=== PATIENT | male | born 1995 ===

== ENCOUNTER 2019-02-06 10:58 | Emergency (ER) | payer OTHER ==
[2019-02-06 11:14] VITALS: TEMP 98.3; BMI 31.4
[2019-02-06 13:02] LABS: BASO % 0.6 % (0.0-2.0); EOS # 0.1 K/uL (0.0-0.7); EOS % 1.1 % (0.0-4.0); HEMOGLOBIN 14.6 g/dL (12.0-18.0); LYMPH # 1.4 K/uL (1.0-4.3); LYMPH % 18.5 % (20.0-40.0); MEAN CORPUSCULAR HEMOGLOBIN 31.9 pg (27.0-31.0); MEAN CORPUSCULAR HGB CONC 33.9 g/dL (33.0-37.0); MEAN PLATELET VOLUME 8.7 fl (7.2-11.7); MONO # 0.5 K/uL (0.0-0.8); MONO % 6.3 % (0.0-10.0); NEUT # 5.7 K/uL (1.8-7.0); NEUT % 73.5 % (50.0-75.0); RBC 4.59 Mil/uL (4.40-5.90); RED CELL DISTRIBUTION WIDTH 13.4 % (11.5-14.5); WHITE BLOOD COUNT 7.7 K/uL (4.8-10.8)
--- NOTE | 2019-02-06 13:09 | ED PDOC ---
HPI: General Adult Time Seen by Provider: 02/06/19 11:19 Chief Complaint (Nursing): ENT Problem Chief Complaint (Provider): Loss of voice tone History Per: Patient History/Exam Limitations: no limitations Onset/Duration Of Symptoms: Days (3x weeks) Current Symptoms Are (Timing): Still Present Severity: Moderate Additional Complaint(s): 23 year old male with no past medical history presents to the ED for an evaluation of a loss of voice tone that started 3x weeks ago. Patient states that he went to bed one night, and woke up the next morning not being able to project his voice. Patient states that it has not improved or worsened since the n. 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 Patient reports drinking tea and taking over the counter cough syrups with no improvement of symptoms. Patient denies being sick with upper respiratory symptoms, recent illnesses (3x weeks ago), throat pain, headaches, ear pain, rhinorrhea, neck pain, difficulty swallowing secretions or food, respiratory problems, cough, chest pain, gastric symptoms including heartburn, epigastric pain, acid reflux, fevers, familial history of thyroid disease, or smoking. PMD: None provided Past Medical History Reviewed: Historical Data, Nursing Documentation, Vital Signs Vital Signs: Last Vital Signs Temp 98.3 F 02/06/19 11:14 Pulse 58 L 02/06/19 11:14 Resp 16 02/06/19 11:14 BP 125/75 02/06/19 11:14 Pulse Ox 96 02/06/19 11:14 DANIEL Report Viewed: Yes - Medical History PMH: No Chronic Diseases - Surgical History Surgical History: No Surg Hx - Family History Family History: States: No Known Family Hx - Social History Current smoker - smoking cessation education provided: No Alcohol: Occasional (1-2x times per month) Drugs: Denies - Allergies Allergies/Adverse Reactions: Allergies Allergy/AdvReac Type Severity Reaction Status Date / Time No Known Allergies Allergy Verified 02/06/19 11:29 Review of Systems ROS Statement: Except As Marked, All Systems Reviewed And Found Negative Constitutional: Negative for: Fever ENT: Positive for: Other ((+) loss of voice tone, (-)difficulty swallowing secretions or food). Negative for: Ear Pain, Nose Discharge, Throat Pain Cardiovascular: Negative for: Chest Pain Respiratory: Negative for: Cough, Shortness of Breath Gastrointestinal: Negative for: Abdominal Pain (denies epigastric pain), Other (heartburn, acid reflux) Musculoskeletal: Negative for: Neck Pain Physical Exam - Reviewed Nursing Documentation Reviewed: Yes Vital Signs Reviewed: Yes - Physical Exam Appears: Positive for: Well, Non-toxic, No Acute Distress Head Exam: Positive for: ATRAUMATIC, NORMOCEPHALIC Skin: Positive for: Normal Color, Warm, Dry Eye Exam: Positive for: Normal appearance ENT: Positive for: Normal ENT Inspection, Pharynx Is (clear), TM Is/Are (non- bulging, non-erythematous), Other (elongated uvula, patient is very soft spoken (whisper like tone).). Negative for: Sinus Pain/Drainage, Nasal Congestion, Pharyngeal Erythema, Tonsillar Exudate, Tonsillar Swelling Neck: Positive for: Normal, Painless ROM, Supple Cardiovascular/Chest: Positive for: Regular Rate, Rhythm Respiratory: Positive for: Normal Breath Sounds Lymphatic: Negative for: Adenopathy ((-) lymphadenopathy, (-) thyroid gland enlargement) Neurological/Psych: Positive for: Awake, Alert, Oriented (3x) - Laboratory Results Result Diagrams: 02/06/19 12:51 02/06/19 12:51 - ECG O2 Sat by Pulse Oximetry: 96 (RA) Pulse Ox Interpretation: Normal Medical Decision Making Medical Decision Makin:19 Initial impression: 23 year old male with a loss of voice tone Initial plan: Case discussed with as well as a consultation with (radiology) for recommendation for imaging. * CT neck soft tissue with IV contrast * BMP * TSH * CBC with differential * reevaluation 14:53 CT neck soft tissue read and reviewed by radiologist FINDINGS: NASOPHARYNX: Unremarkable. SUPRAHYOID NECK: Unremarkable oropharynx, oral cavity, parapharyngeal space and retropharyngeal space. INFRAHYOID NECK: Unremarkable larynx, hypopharynx, and supraglottic space. Lateral positioning of the left vocal cord is suggested, which may indicate some level of paralysis. Clinically correlate further. Direct laryngoscopy recommended. No mass identified at the expected location of the bilateral recurrent laryngeal nerves in the neck or thoracic inlet. GLANDS: Parotid and submandibular glands unremarkable. Normal size thyroid gland, without nodule. LYMPH NODES: Numerous shotty lymph nodes identified in the supra or infrahyoid neck, particularly in the jugular digastric lymph node chains and submandibular spaces bilaterally. Occasional limited shotty lymph nodes are seen at the left supraclavicular space as well. CERVICAL SPINE: No fracture or focal lesion. VASCULAR STRUCTURES: Unremarkable. OTHER FINDINGS: None. IMPRESSION: Potential dysfunction at left vocal cord which is more lateral in position than the right may indicate left-sided paralysis. Direct laryngoscopy advised for added characterization. No definitive supra or infrahyoid neck mass appreciable including at the expected locations of the bilateral recurrent laryngeal nerves. Numerous but shotty lymph nodes identified at the bilateral jugular digastric lymph node chains and submandibular spaces as well as at the left supraclavicular space. 16:10 Case discussed with who recommends a CT chest w/o contrast and for the patient to follow up at his office as soon as possible. 18:07 CT chest read and reviewed by radiologist FINDINGS: LUNGS: Clear lungs. Visualized airway clear MEDIASTINUM: Unremarkable thoracic aorta. No aneurysm. Normal sized heart. Main pulmonary artery unremarkable. No vascular congestion. No lymphadenopathy. No aortic atherosclerotic calcification. PLEURA: No pleural fluid. No pneumothorax. BONES: No fracture. No destructive lesion. UPPER ABDOMEN: Grossly unremarkable. OTHER FINDINGS: None. IMPRESSION: Unremarkable non-contrast enhanced CT of the chest. Specifically common no abnormalities to suggest recurrent laryngeal nerve process. There is no evidence of supraclavicular, superior mediastinal tumor. 18:32 Upon provider reevaluation patient is medically stable, and requires no further treatment in the ED at this time. Patient will be discharged home. Counseling was provided and all questions were answered regarding diagnosis and encouraged patient to call tomorrow for an appointment with as soon as possible. Patient given copies of CT imaging to bring to . Instructions given by me in Japanese. There is agreement to discharge plan. Return if symptoms persist or worsen. ScribeAttestation: Documented Anibal Schumacher, acting as a scribe for Taina Mejía APN. Provider ScribeAttestation: All medical record entries made by the Scribe were at my direction and personally dictated by me. I have reviewed the chart and agree that the record accurately reflects my personal performance of the history, physical exam, medical decision making, and the department course for this patient. I have also personally directed, reviewed, and agree with the discharge instructions and disposition. Disposition - Clinical Impression Clinical Impression: Laryngeal paralysis - Patient ED Disposition Is Patient to be Admitted: No Counseled Patient/Family Regarding: Diagnosis, Need For Followup - Disposition Referrals: Francisco Willard MD [Staff Provider] - Disposition: Routine/Home Disposition Time: 18:32 Condition: GOOD Additional Instructions: Por favor de llamar al ENT lo mas pronto possible para cristina mell. Instructions: Vocal Cord Dysfunction Forms: [facility] (Slovak) Print Language: TURKMEN - POA Present On Arrival: None
[2019-02-06 13:49] LABS: BLOOD UREA NITROGEN 15 mg/dl (9-20); CALCIUM 8.8 mg/dL (8.4-10.2); GFR NON-AFRICAN AMERICAN > 60
[2019-02-06] MEDS ORDERED: Iohexol 300 100 ML IJ ONE (14:15)
[2019-02-06] MEDS ORDERED: Sodium Chloride 0.9% 50 ML IV ONE (14:16)
--- NOTE | 2019-02-06 14:56 | CT ---
Date of service: 02/06/2019 PROCEDURE: CT NECK WITH CONTRAST HISTORY: r/o laryngeal paralysis COMPARISON: None available. TECHNIQUE: CT of the neck with intravenous contrast. Coronal and sagittal reformats generated. Intravenous contrast dose: Omnipaque 300, 95 cc Radiation dose: Total exam DLP = 287.14 mGy-cm. This CT exam was performed using one or more of the following dose reduction techniques: Automated exposure control, adjustment of the mA and/or kV according to patient size, and/or use of iterative reconstruction technique. FINDINGS: NASOPHARYNX: Unremarkable. SUPRAHYOID NECK: Unremarkable oropharynx, oral cavity, parapharyngeal space and retropharyngeal space. INFRAHYOID NECK: Unremarkable larynx, hypopharynx, and supraglottic space. Lateral positioning of the left vocal cord is suggested, which may indicate some level of paralysis. Clinically correlate further. Direct laryngoscopy recommended. No mass identified at the expected location of the bilateral recurrent laryngeal nerves in the neck or thoracic inlet. GLANDS: Parotid and submandibular glands unremarkable. Normal size thyroid gland, without nodule. LYMPH NODES: Numerous shotty lymph nodes identified in the supra or infrahyoid neck, particularly in the jugular digastric lymph node chains and submandibular spaces bilaterally. Occasional limited shotty lymph nodes are seen at the left supraclavicular space as well. CERVICAL SPINE: No fracture or focal lesion. VASCULAR STRUCTURES: Unremarkable. OTHER FINDINGS: None. IMPRESSION: Potential dysfunction at left vocal cord which is more lateral in position than the right may indicate left-sided paralysis. Direct laryngoscopy advised for added characterization. No definitive supra or infrahyoid neck mass appreciable including at the expected locations of the bilateral recurrent laryngeal nerves. Numerous but shotty lymph nodes identified at the bilateral jugular digastric lymph node chains and submandibular spaces as well as at the left supraclavicular space.
--- NOTE | 2019-02-06 18:11 | CT ---
Date of service: 02/06/2019 PROCEDURE: CT Chest without contrast HISTORY: Vocal cord paralysis. COMPARISON: 02/06/2019 CT neck. Summary of findings on the comparison examination: TECHNIQUE: Contiguous axial images were obtained through the chest without intravenous contrast enhancement. Sagittal and coronal reconstructions were performed. Radiation dose: Total exam DLP = 492.12 mGy-cm. This CT exam was performed using one or more of the following dose reduction techniques: Automated exposure control, adjustment of the mA and/or kV according to patient size, and/or use of iterative reconstruction technique. FINDINGS: LUNGS: Clear lungs. Visualized airway clear MEDIASTINUM: Unremarkable thoracic aorta. No aneurysm. Normal sized heart. Main pulmonary artery unremarkable. No vascular congestion. No lymphadenopathy. No aortic atherosclerotic calcification. PLEURA: No pleural fluid. No pneumothorax. BONES: No fracture. No destructive lesion. UPPER ABDOMEN: Grossly unremarkable. OTHER FINDINGS: None. IMPRESSION: Unremarkable non-contrast enhanced CT of the chest. Specifically common no abnormalities to suggest recurrent laryngeal nerve process. There is no evidence of supraclavicular, superior mediastinal tumor.
[2019-02-06 18:49] VITALS: BP 125/74; PULSE 63; RESP 18
[2019-02-06 19:00] VITALS: O2SAT 96
== END 2019-02-06 18:32 | disposition home or self-care (01) ==
LOC: H.ER 10:58
DX: J38.00 Paralysis of vocal cords and larynx, unspecified (principal)
CPT/HCPCS: 70491; 71250; 80048; 84443; 85025; 99283; Q9967